=== PATIENT | female | born 1975 | race Caucasian/White ===

== ENCOUNTER → 2023-03-11 11:33 | Outpatient (CLI) | payer SELFPAY ==
--- NOTE | 2023-03-11 | DI.RAD.S_ITS ---
PROCEDURE: XR LUMBAR SPINE 2-3V INDICATIONS: segmental and somatic dysfunction, lumbar, sacral regions TECHNIQUE: 3 views of the lumbar spine were acquired. COMPARISON: None. FINDINGS: Bones: 5 [id number] vertebrae are present. There is normal bony alignment. No vertebral body compression fractures. No suspicious bony lesions. Mild disc height loss at L5-S1 and L4-5. Soft tissues: Overlying bowel gas pattern is normal. No suspicious soft tissue calcifications. IMPRESSION: Mild disc height loss at L5-S1 and L4-5. Dictated by: Tone Ladd M.D. on 03/11/2023 at 16:36 Approved by: Tone Ladd M.D. on 03/11/2023 at 16:36
--- NOTE | 2023-03-11 11:44 | DI.RAD.S_ITS ---
PROCEDURE: XR THORACIC SPINE 2V INDICATIONS: segmental and somatic dysfunction, lumbar, sacral regions TECHNIQUE: 3 views of the thoracic spine were acquired. COMPARISON: None. FINDINGS: Bones: No fractures or dislocations. No suspicious bony lesions. 12 pairs of ribs are noted, and appear intact where visualized. Soft tissues: No paravertebral stripe thickening. IMPRESSION: No significant degenerative change. Dictated by: Tone Ladd M.D. on 03/11/2023 at 16:37 Approved by: Tone Ladd M.D. on 03/11/2023 at 16:37
--- NOTE | 2023-03-11 11:44 | DI.RAD.S_ITS ---
PROCEDURE: XR CERVICAL SPINE 2V OR 3V INDICATIONS: segmental and somatic dysfunction, lumbar, sacral regions TECHNIQUE: 3 view(s) of the cervical spine were acquired. COMPARISON: None. FINDINGS: Bones: No fractures or dislocations to the C7 level. The lateral masses of C1 appear intact on the odontoid view. No suspicious bony lesions. Mild disc height loss at C6-7. Soft tissues: No prevertebral soft tissue swelling. IMPRESSION: Mild disc height loss at C6-7. Dictated by: Tone Ladd M.D. on 03/11/2023 at 16:36 Approved by: Tone Ladd M.D. on 03/11/2023 at 16:36
== END ==
PROVIDERS: Referring Provider Chiropractor; Visit Provider Chiropractor
DX: M99.04 Segmental and somatic dysfunction of sacral region (principal); M99.03 Segmental and somatic dysfunction of lumbar region; M62.49 Contracture of muscle, multiple sites
CPT/HCPCS: 72040; 72070; 72100